=== PATIENT | male | born 1960 | race Two or more races ===

== ENCOUNTER → 2017-01-03 | Outpatient (CLI) | payer BC ==
[2017-01-03 12:40] LABS: BLOOD UREA NITROGEN 16 mg/dL (6-24); CREATININE 0.8 mg/dL (0.6-1.3); ESTIMATED GFR (MDRD EQUATION) > 60
== END | disposition disaster alternative care site (69) ==
LOC: GLAB 12-12 15:00 → GRAD 12-12 16:00 → GLAB 11:37
PROVIDERS: Internal Medicine
DX: D68.61 Antiphospholipid syndrome (principal); D50.0 Iron deficiency anemia secondary to blood loss (chronic); I10 Essential (primary) hypertension; G93.0 Cerebral cysts; I67.89 Other cerebrovascular disease
CPT/HCPCS: A9576